=== PATIENT | male | born 1975 | race Hispanic/Latino ===

== ENCOUNTER 2023-08-17 17:13 | Emergency (ER) | payer BC ==
[~2023-08-17] VITALS: Ht 177.8 cm; Wt 79.4 kg
[2023-08-17 17:34] LABS: BASOPHILS # (AUTO) 0.1 (0.0-0.1); BASOPHILS % 0.7 % (0.0-1.0); EOSINOPHILS # (AUTO) 0.3 (0.0-0.4); EOSINOPHILS % 1.9 % (0.0-6.0); HEMATOCRIT 44.5 % (38.2-49.6); HEMOGLOBIN 16.4 g/dL (14.0-18.0); LYMPHOCYTES # (AUTO) 2.5 (1.0-3.2); LYMPHOCYTES % 16.2 % (18.0-39.1); MEAN CORPUSCULAR HEMOGLOBIN 30.7 pg (28-32); MEAN CORPUSCULAR HGB CONC 36.9 g/dL (31-35); MEAN CORPUSCULAR VOLUME 83.2 fL (81-99); MONOCYTES # (AUTO) 0.7 (0.2-0.8); MONOCYTES % 4.9 % (4.4-11.3); NEUTROPHILS # (AUTO) 11.5 (2.1-6.9); PLATELET COUNT 186 x10e3/uL (140-360); RED BLOOD COUNT 5.35 x10e6/uL (4.3-5.7); WHITE BLOOD COUNT 15.16 x10e3/uL (4.8-10.8)
[2023-08-17 17:50] LABS: ALBUMIN 4.9 g/dL (3.5-5.0); ALBUMIN/GLOBULIN RATIO 1.3 (0.8-2.0); ANION GAP 17.2 mmol/L (8-16); CALCIUM 10.1 mg/dL (8.4-10.2); CREATININE, SERUM 1.4 mg/dL (0.72-1.25); POTASSIUM 4.2 mmol/L (3.5-5.1)
[2023-08-17] MEDS ORDERED: INSULIN REGULAR, HUMAN 100 UNIT/1 ML SQ ONE (18:15)
[2023-08-17] MEDS ORDERED: LACTATED RINGER'S 1,000 ML IV ONE (18:15)
[2023-08-17] MEDS ORDERED: VENTOLIN HFA18 GM INH (18:17)
[2023-08-17] MEDS ORDERED: METFORMIN HCL500 MG PO (18:17)
[2023-08-17 19:57] VITALS: BP 129/87; O2SAT 98
[2023-08-17] MEDS ORDERED: BACITRACIN ZINC 0.9GM TP ONE (21:17)
== END 2023-08-17 19:59 | disposition home or self-care (01) ==
LOC: ER 17:18
DX: E11.65 Type 2 diabetes mellitus with hyperglycemia (principal)
CPT/HCPCS: 36415; 80053; 82948; 83735; 85025; 99284; J7121; 93005